=== PATIENT | male | born 1990 | race Caucasian/White ===

== ENCOUNTER 2018-10-12 00:53 | Emergency (ER) | payer OTHER ==
[2018-10-12 01:11] VITALS: BP 130/76
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
[2018-10-12] MEDS ORDERED: IBUPROFEN 600 MG TABLET PO STA (01:55)
== END 2018-10-12 02:04 | disposition home or self-care (01) ==
LOC: ED 00:53
DX: S46.911A Strain of unspecified muscle, fascia and tendon at shoulder and upper arm level, right arm, initial encounter (principal); V89.2XXA Person injured in unspecified motor-vehicle accident, traffic, initial encounter
CPT/HCPCS: 99283; A9270